=== PATIENT | female | born 1980 | race African-American/Black ===

== ENCOUNTER 2022-05-05 12:01 | Inpatient (IN) | payer OTHER ==
[2022-05-05] MEDS ORDERED: NICOTINE 10 MG CARTRIDGE (INHALER) IH PRN (13:57)
[2022-05-05] MEDS ORDERED: MAGNESIUM HYDROX 2400MG/30ML ORAL SUSPENSION 30 ML CUP PO PRN (13:57)
[2022-05-05] MEDS ORDERED: METHOCARBAMOL 500 MG TABLET PO PRN (13:57)
[2022-05-05] MEDS ORDERED: NALOXONE HCL (KLOXXADO) 8 MG SPRAY NS PRN (13:57)
[2022-05-05] MEDS ORDERED: MAG HYDROX/AL HYDROX/SIMETH 30 ML UNIT-DOSE CUP PO PRN (13:57)
[2022-05-05] MEDS ORDERED: BISMUTH SUBSALICYLATE 524 MG/30 ML PO PRN (13:57)
[2022-05-05] MEDS ORDERED: DICYCLOMINE HCL 10 MG CAPSULE PO PRN (13:57)
[2022-05-05] MEDS ORDERED: MAGNESIUM CITRATE 300 ML BOTTLE PO PRN (13:57)
[2022-05-05] MEDS ORDERED: IBUPROFEN 400 MG TABLET (FP) PO PRN (13:57)
[2022-05-05] MEDS ORDERED: LOPERAMIDE HCL 2 MG CAPSULE PO PRN (13:57)
[2022-05-05] MEDS ORDERED: ACETAMINOPHEN 325 MG TABLET (FP) PO PRN ×2 (13:57)
[2022-05-05] MEDS ORDERED: IBUPROFEN 600 MG TABLET (FP) PO PRN (13:57)
[2022-05-05] MEDS ORDERED: ONDANSETRON *ODT* 4 MG TABLET SL PRN (13:57)
[2022-05-05] MEDS ORDERED: BENZOCAINE/MENTHOL (CHLORASEPTIC ) LOZENGE MM PRN (13:57)
[2022-05-05] MEDS ORDERED: cloNIDine HCL 0.1 MG TABLET PO ONE (14:05)
[2022-05-05] MEDS ORDERED: cloNIDine HCL 0.1 MG TABLET ONE (14:44)
[2022-05-05] MEDS ORDERED: amLODIPine BESYLATE 5 MG TABLET (FP) PO SCH (15:15)
[2022-05-05] MEDS: amLODIPine BESYLATE 5 MG TABLET (FP) PO SCH (17:28)
[2022-05-05] MEDS: hydrOXYzine PAMOATE 25 MG CAPSULE (FP) PO PRN (17:29)
[2022-05-05] MEDS: THIAMINE HCL 100 MG TABLET (FP) PO SCH (22:40)
[2022-05-05] MEDS: MELATONIN 5 MG TABLETS PO SCH (22:41)
[2022-05-06] MEDS: hydrOXYzine PAMOATE 25 MG CAPSULE (FP) PO PRN (08:06)
[2022-05-06] MEDS: amLODIPine BESYLATE 5 MG TABLET (FP) PO SCH (09:01)
[2022-05-06] MEDS: PRENATAL VITAMINS W/ FOLIC ACID TABLET (FP) PO SCH (09:01)
[2022-05-06] MEDS ORDERED: cloNIDine HCL 0.1 MG TABLET PO PRN (09:37)
[2022-05-06] MEDS ORDERED: LORazepam 1 MG TABLET PO PRN (10:26)
[2022-05-06] MEDS: LORazepam 2 MG TABLET PO SCH ×3 (10:42→22:13)
[2022-05-06 11:35] LABS: HEMATOCRIT 36.8 % (32.4-45.2); HEMOGLOBIN 12.2 GM/dL (10.7-15.3); MCH 32.5 pg (25.7-33.7); MCHC 33.1 g/dl (32.0-36.0); PLATELET COUNT 212 10^3/uL (134-434); RBC 3.76 M/mm3 (3.60-5.2); RDW 15.1 % (11.6-15.6)
[2022-05-06 11:36] LABS: CHLORIDE 101 mmol/L (98-107); SODIUM 140 mmol/L (136-145)
[2022-05-06 11:40] LABS: BLOOD UREA NITROGEN 9.1 mg/dL (7-18); CALCIUM 8.9 mg/dL (8.5-10.1); CO2 32 mmol/L (21-32)
[2022-05-06 11:41] LABS: ALBUMIN 3.5 g/dl (3.4-5.0); GLUCOSE,RANDOM 82 mg/dL (74-106)
[2022-05-06 11:43] LABS: CREATININE 0.7 mg/dL (0.55-1.3); SGPT/ALT 18 U/L (13-61)
[2022-05-06 11:44] LABS: SGOT/AST 29 U/L (15-37)
[2022-05-06 11:45] LABS: BILIRUBIN,TOTAL 0.4 mg/dL (0.2-1); TOT PROT 6.9 g/dl (6.4-8.2)
[2022-05-06 11:46] LABS: ALK PHOS 67 U/L (45-117); ANION GAP 7 MMOL/L (8-16)
[2022-05-06] MEDS ORDERED: POTASSIUM CHLORIDE ORAL LIQUID 20 MEQ/15 ML PO ONE ×2 (12:30→16:30)
[2022-05-06] MEDS: LISINOPRIL 10 MG TABLET PO SCH (13:04)
[2022-05-06] MEDS: MELATONIN 5 MG TABLETS PO SCH (22:12)
[2022-05-06] MEDS: THIAMINE HCL 100 MG TABLET (FP) PO SCH (22:12)
[2022-05-07] MEDS: LORazepam 1 MG TABLET PO SCH ×4 (05:58→22:23)
[2022-05-07] MEDS: amLODIPine BESYLATE 10 MG TABLET (FP) PO SCH (10:20)
[2022-05-07] MEDS: PRENATAL VITAMINS W/ FOLIC ACID TABLET (FP) PO SCH (10:21)
[2022-05-07] MEDS: LISINOPRIL 10 MG TABLET PO SCH (10:21)
[2022-05-07] MEDS: THIAMINE HCL 100 MG TABLET (FP) PO SCH (22:23)
[2022-05-07] MEDS: MELATONIN 5 MG TABLETS PO SCH (22:23)
[2022-05-08] MEDS ORDERED: LORazepam 0.5 MG TABLET PO PRN
[2022-05-08] MEDS: LORazepam 0.5 MG TABLET PO SCH ×4 (05:57→22:04)
[2022-05-08] MEDS: LISINOPRIL 10 MG TABLET PO SCH (10:23)
[2022-05-08] MEDS: PRENATAL VITAMINS W/ FOLIC ACID TABLET (FP) PO SCH (10:23)
[2022-05-08] MEDS: amLODIPine BESYLATE 10 MG TABLET (FP) PO SCH (10:23)
[2022-05-08 17:43] VITALS: RESP 18
[2022-05-08] MEDS: THIAMINE HCL 100 MG TABLET (FP) PO SCH (22:04)
[2022-05-08] MEDS: MELATONIN 5 MG TABLETS PO SCH (22:04)
[2022-05-08] MEDS: hydrOXYzine PAMOATE 25 MG CAPSULE (FP) PO PRN (22:04)
[2022-05-09] MEDS ORDERED: LORazepam 0.5 MG TABLET PO ONE (05:00)
[2022-05-09 06:46] VITALS: BP 142/81; PULSE 56; TEMP 97.4
[2022-05-09] MEDS: PRENATAL VITAMINS W/ FOLIC ACID TABLET (FP) PO SCH (09:48)
[2022-05-09] MEDS: amLODIPine BESYLATE 10 MG TABLET (FP) PO SCH (09:48)
[2022-05-09] MEDS: LISINOPRIL 10 MG TABLET PO SCH (09:48)
== END 2022-05-09 10:45 | disposition home or self-care (01) | DRG 775 ==
LOC: YASAS 12:01 → Y6N 15:50
PROVIDERS: ADMIT Allergy & Immunology; ATTEND Surgery
PROC: HZ2ZZZZ Detoxification Services for Substance Abuse Treatment (ICD-10-PCS; principal; 2022-05-05)
DX: F10.230 Alcohol dependence with withdrawal, uncomplicated (principal); F17.210 Nicotine dependence, cigarettes, uncomplicated; I10 Essential (primary) hypertension; K21.9 Gastro-esophageal reflux disease without esophagitis; R79.89 Other specified abnormal findings of blood chemistry; Z28.310 Unvaccinated for COVID-19; Z28.9 Immunization not carried out for unspecified reason; Z88.0 Allergy status to penicillin
CPT/HCPCS: 36415; 71046-TC-FY; 80053; 81025; 84132; 85027; 86780; 87811; 93005; 93010; C9803-CS; U0003; U0005